=== PATIENT | female | born 1950 | race Caucasian/White ===

== ENCOUNTER → 2016-09-03 | Outpatient (CLI) | payer OTHER ==
[2016-09-03 13:23] LABS: HEMOGLOBIN 13.7 gm/dl (12.3-15.3); RED BLOOD COUNT 4.57 M/UL (4.00-5.10); WHITE BLOOD COUNT 4.5 K/UL (4.5-11.0)
[2016-09-03 14:59] LABS: BUN/CREATININE RATIO 38 (0-10)
== END ==
LOC: LAB 12:21
PROVIDERS: Physician Assistant
DX: Z02.89 Encounter for other administrative examinations (principal); I10 Essential (primary) hypertension; E78.5 Hyperlipidemia, unspecified; E11.9 Type 2 diabetes mellitus without complications; Z79.899 Other long term (current) drug therapy
CPT/HCPCS: 36415; 80053; 80061; 82043; 82570; 83036; 84439; 84443; 85025

== ENCOUNTER → 2016-11-11 | Outpatient (CLI) | payer OTHER | LOC: MAMO 08:43 | DX: Z12.31 Encounter for screening mammogram for malignant neoplasm of breast (principal) | CPT/HCPCS: G0202 ==

== ENCOUNTER → 2020-12-27 | Outpatient (CLI) | payer OTHER ==
[~2020-12-27] MED LIST: ARTIFICIAL TEA1 EACH OP; CLONIDINE HCL0.1 MG PO
== END ==
LOC: RT 11:55
DX: I10 Essential (primary) hypertension (principal)
CPT/HCPCS: 93005

== ENCOUNTER → 2021-01-14 | Outpatient (CLI) | payer OTHER | LOC: KOH-I 09:40 | DX: M54.5 Low back pain (principal); M43.16 Spondylolisthesis, lumbar region | CPT/HCPCS: 72100 ==

== ENCOUNTER → 2021-01-18 | Outpatient (CLI) | payer OTHER | LOC: EMI 09:21 | DX: M54.5 Low back pain (principal); M47.816 Spondylosis without myelopathy or radiculopathy, lumbar region | CPT/HCPCS: 72148 ==

== ENCOUNTER → 2021-09-02 | Outpatient (CLI) | payer OTHER | LOC: MAMO 09:10 | DX: Z12.31 Encounter for screening mammogram for malignant neoplasm of breast (principal) | CPT/HCPCS: 77063; 77067 ==

== ENCOUNTER → 2021-10-17 | Outpatient (CLI) | payer OTHER ==
[2021-10-18 15:13] LABS: A/G RATIO 1.4 (0.7-1.7); ALBUMIN 4.1 g/dL (2.9-4.4); ALPHA-1-GLOBULIN 0.2 g/dL (0.0-0.4); ALPHA-2-GLOBULIN 0.7 g/dL (0.4-1.0); ANGIOTENSIN-CONVERTING ENZYME 40 U/L (14-82); BETA GLOBULIN 1.1 g/dL (0.7-1.3); GAMMA GLOBULIN 0.8 g/dL (0.4-1.8); GLOBULIN, TOTAL 2.9 g/dL (2.2-3.9); M-SPIKE Not Observed g/dL (Not Observed)
[2021-10-21 11:11] LABS: M-SPIKE, % Not Observed % (Not Observed); PROTEIN,TOTAL,URINE 33.7 mg/dL (Not Estab.)
== END ==
LOC: LAB 08:34
PROVIDERS: Internal Medicine
DX: E83.52 Hypercalcemia (principal)
CPT/HCPCS: 36415; 71046; 82164; 82652; 84155; 84156; 84165; 84166; 84590